=== PATIENT | female | born 1965 | race Caucasian/White ===

== ENCOUNTER 2019-12-08 08:52 | Emergency (ER) | payer BC ==
[~2019-12-08] VITALS: Ht 149.9 cm; Wt 91.7 kg
[~2019-12-08 08:52] MED LIST: CARI350T14 PO; CITA40TA5 PO; MEDR10TA PO; METH4TAB6 PO
[2019-12-08 08:57] VITALS: BP 140/88
--- NOTE | 2019-12-08 09:28 | NUR ---
PT'S DAUGHTER AT BEDSIDE. STATES THAT PT HAD A BLADDER LIFT IN THE LAST YEAR. PT HAD A PROCEDURE DONE AT [facility] OFFICE TUESDAY WHERE THEY INTRODUCED LIQUID INTO BLADDER THROUGH [facility]. PT NOW HAS PAINFUL URINATION WITH BURNING. UOB TO BATHROOM TO GIVE URINE SAMPLE
[2019-12-08] MEDS ORDERED: PHENAZOPYRIDINE 200 MG TABLET PO ONE (09:30)
[2019-12-08] MEDS ORDERED: PHENAZOPYRIDINE 200 MG TABLET ONE (09:37)
[2019-12-08 09:49] LABS: BASOPHILS % (AUTO) 0 % (0-1); EOSINOPHILS % (AUTO) 0 % (1-7); LYMPHOCYTES % (AUTO) 11 % (22-44); MEAN CORPUSCULAR HEMOGLOBIN 27.6 pg (27.0-34.8); MEAN CORPUSCULAR HGB CONC 33.2 g/dL (32.4-35.8); MEAN PLATELET VOLUME 8.1 fL (7.4-10.4); MONOCYTES % (AUTO) 6 % (2-9); NEUTROPHILS % (AUTO) 84 % (42-75); PLATELET COUNT 224 x10^3/uL (130-400); RED BLOOD COUNT 5.47 x10^6/uL (3.82-5.3); RED CELL DISTRIBUTION WIDTH 14.2 % (9.6-15.2)
[2019-12-08 09:49] LABS: MICROSCOPIC INDICATED
[2019-12-08 09:58] LABS: MD NO
[2019-12-08 10:00] LABS: ALBUMIN 4.2 g/dL (3.4-5.0); ANION GAP 5 mmol/L (5-15); CALCIUM 8.9 mg/dL (8.5-10.1); CHLORIDE 111 mmol/L (98-107); CREATININE 0.69 mg/dL (0.55-1.02)
== END 2019-12-08 10:31 | disposition home or self-care (01) ==
LOC: ED 09:37
DX: N30.01 Acute cystitis with hematuria (principal)
CPT/HCPCS: 36415; 80048; 81001; 82040; 85025; 87077; 87086; 87186; 99283